=== PATIENT | female | born 1950 ===

== ENCOUNTER 2017-08-08 00:28 | Emergency (ER) | payer MEDICARE ==
[2017-08-08 00:38] VITALS: PULSE 74
[2017-08-08 00:39] VITALS: BMI 35.2
--- NOTE | 2017-08-08 01:07 | ED PDOC ---
Arrival/HPI <Terrell Syed - Last Filed: 08/08/17 01:23> - General Historian: Patient, Family - History of Present Illness Time/Duration: Prior to Arrival, 1 hour Symptom Course: Improving <Reid Baca - Last Filed: 08/08/17 02:22> - General Chief Complaint: High Blood Pressure Time Seen by Provider: 08/08/17 00:34 - History of Present Illness Narrative History of Present Illness (Text): 08/08/17 01:02 66F pmhx significant for HTN, HLD presents to [facility] [place] ED w/ concern of elevated blood pressure. Patient was at home and took her blood pressure w/ systolic in 190s. patient was concerned and subsequently came to the ED. During encounter patient admits to having coffee earlier this evening at 20:00. Denies associated chest pain, nausea, vomiting, diarrhea, numbness/tingling in extremities, vision changes Of note: patient had recent workup of echo, angiography, and nuclear stress test , all which revealed normal results per patients hx. PMH: stated above ALL: NKDA Socialhx: denies etoh, tobacco, recreational drug use. Denies additional stressors at work. Works as forensic accountant PMD: Dr. Pedersen (Reid Baca) Past Medical History - Provider Review Nursing Documentation Reviewed: Yes - Travel History Have you recently traveled outside [place] w/in the past 3 mons?: No - Cardiac Hx Cardiac Disorders: Yes Hx Hypertension: Yes - Pulmonary Hx Respiratory Disorders: No - Neurological Hx Neurological Disorder: No - HEENT Hx HEENT Disorder: No - Renal Hx Renal Disorder: No - Endocrine/Metabolic Hx Endocrine Disorders: No - Hematological/Oncological Hx Blood Disorders: No - Integumentary Hx Dermatological Disorder: No - Musculoskeletal/Rheumatological Hx Musculoskeletal Disorders: No - Gastrointestinal Hx Gastrointestinal Disorders: No - Genitourinary/Gynecological Hx Genitourinary Disorders: No - Psychiatric Hx Psychophysiologic Disorder: No Hx Substance Use: No - Anesthesia Hx Anesthesia: No <Reid Baca - Last Filed: 08/08/17 02:22> Family/Social History Family/Social History: [place] (Father and brother) Smoking Status: Never Smoked Hx Alcohol Use: No Hx Substance Use: No <Reid Baca - Last Filed: 08/08/17 02:22> Allergies/Home Meds <KunalTerrell - Last Filed: 08/08/17 01:23> <MerchantReid - Last Filed: 08/08/17 02:22> Allergies/Adverse Reactions: Allergies No Known Allergies Allergy (Verified 08/08/17 00:44) Home Medications: Home Meds Medication Instructions Recorded Confirmed Diltiazem HCl [Diltiazem 24Hr Cd] 240 mg PO DAILY 08/08/17 08/08/17 Pravastatin Sodium [Pravastatin 80 mg PO DAILY 08/08/17 08/08/17 Sodium] hydroCHLOROthiazide [Hydrodiuril] 25 mg PO DAILY 08/08/17 08/08/17 Review of Systems - Physician Review All systems were reviewed & negative as marked: Yes - Review of Systems Constitutional: Normal Eyes: absent: Vision Changes, Photophobia, Eye Pain ENT: absent: Hearing Changes, Tinnitus Respiratory: absent: SOB, Cough, Sputum, Wheezing Cardiovascular: absent: Chest Pain, Palpitations, Edema, Syncope Gastrointestinal: absent: Abdominal Pain, Stool Changes, Vomiting Musculoskeletal: absent: Arthralgias, Back Pain Skin: absent: Rash Neurological: absent: Dizziness, Focal Weakness Endocrine: absent: Polyuria <Reid Baca - Last Filed: 08/08/17 02:22> Physical Exam Vital Signs Reviewed: Yes Temperature: Afebrile Blood Pressure: Other (repeat BP in room 144/78) Pulse: Regular Respiratory Rate: Normal Appearance: Positive for: Well-Appearing, Non-Toxic, Comfortable Pain Distress: None Mental Status: Positive for: Alert and Oriented X 3 - Systems Exam Head: Present: Atraumatic, Other (mole R. forehead) Pupils: Present: PERRL, Other (fundoscopic exam performed- no papilledema or sunburst appearance) Extroacular Muscles: Present: EOMI Mouth: Present: Moist Mucous Membranes Nose (External): Present: Atraumatic. No: Abrasion Neck: Present: Normal Range of Motion Respiratory/Chest: Present: Clear to Auscultation, Good Air Exchange. No: Respiratory Distress, Accessory Muscle Use Cardiovascular: Present: Regular Rate and Rhythm, Murmurs, Normal S1, S2 Abdomen: No: Tenderness, Distention, Peritoneal Signs Upper Extremity: Present: Normal Inspection, NORMAL PULSES. No: Edema Lower Extremity: Present: Normal Inspection. No: Edema, CALF TENDERNESS Neurological: Present: GCS=15, Speech Normal Skin: Present: Dry Psychiatric: Present: Alert, Oriented x 3 <Reid Baca - Last Filed: 08/08/17 02:22> Vital Signs Temp Pulse Resp BP Pulse Ox 08/08/17 00:38 98.0 F 74 18 166/66 H 98 Medical Decision Making <Terrell Syed - Last Filed: 08/08/17 01:23> <Reid Baca - Last Filed: 08/08/17 02:22> ED Course and Treatment: 08/08/17 01:23 Carola Tolentino is a 66 year old female who presents to the emergency department complaining of elevated blood pressure. In agreement with resident note, which includes further HPI details. Patient was seen and evaluated with resident, came up with plan and treatment together. (Terrell Syed) 08/08/17 01:11 - CBC/BMP - monitor vitals 08/08/17 02:20 blood pressure trending down. most recent 138/70 Potassium 3.2 will give K-Dur 40 (Reid Baca) - Lab Interpretations Narrative Lab Interpretation (Text): 08/08/17 02:19 CBC- WNL BMP- K 3.2 (Reid Baca) Lab Results: 08/08/17 01:18 08/08/17 01:18 Lab Results 08/08/17 01:18: Sodium 143, Potassium 3.2 L, Chloride 99, Carbon Dioxide 33, Anion Gap 15, BUN 15, Creatinine 0.7, Est GFR ( Amer) > 60, Est GFR (Non- Af Amer) > 60, Random Glucose 118 H, Calcium 10.3 08/08/17 01:18: WBC 9.4, RBC 4.56, Hgb 14.0, Hct 41.8, MCV 91.7, MCH 30.7, MCHC 33.5, RDW 13.3, Plt Count 265, MPV 9.8 - Medication Orders Current Medication Orders: Discontinued Medications Potassium Chloride (K-Dur 20 Meq Er Tab) 40 meq PO STAT STA Stop: 08/08/17 01:59 - PA / PIPE ORGAN INSTALLER / Resident Statement / has reviewed & agrees with the documentation as recorded. SILVANA has examined the patient and agrees with the treatment plan. <Terrell Syed - Last Filed: 08/08/17 01:23> - PA / PIPE ORGAN INSTALLER / Resident Statement SILVANA has reviewed & agrees with the documentation as recorded. SILVANA has examined the patient and agrees with the treatment plan. <Reid Baca - Last Filed: 08/08/17 02:22> Disposition/Present on Arrival <Terrell Syed - Last Filed: 08/08/17 01:23> - Present on Arrival Any Indicators Present on Arrival: No History of DVT/PE: No History of Uncontrolled Diabetes: No Urinary Catheter: No History of Decub. Ulcer: No History Surgical Site Infection Following: None - Disposition Have Diagnosis and Disposition been Completed?: Yes Disposition Time: 02:21 Patient Plan: Discharge <Reid Baca - Last Filed: 08/08/17 02:22> - Disposition Diagnosis: High blood pressure, Hypokalemia Disposition: HOME/ ROUTINE Patient Problems: Current Active Problems Problem Status Onset High blood pressure Acute Condition: GOOD Discharge Instructions (ExitCare): High Blood Pressure (DC) Additional Instructions: Carola Lopez, thank you for letting us take care of you today. Your provider was Dr. Syed and Dr. Baca. You were treated for High blood pressure. The emergency medical care you received today was directed at your acute symptoms. If you were prescribed any medication, please fill it and take as directed. It may take several days for your symptoms to resolve. Return to the Emergency Department if your symptoms worsen, do not improve, or if you have any other problems. Recommend do not drink coffee or caffinated beverages at night prior to bed. Drink fluid and stay well hydrated throughout the day. Please contact your doctor or call one of the physicians/clinics you have been referred to that are listed on the Patient Visit Information form that is included in your discharge packet. Bring any paperwork you were given at discharge with you along with any medications you are taking to your follow up visit. Our treatment cannot replace ongoing medical care by a primary care provider (PCP) outside of the emergency department. Thank you for allowing the [facility] team to be part of your care today. Forms: [employer] (Spanish)
[2017-08-08 01:31] LABS: MEAN CELL VOLUME 91.7 fl (80.0-105.0); MEAN CORPUSCULAR HEMOGLOBIN 30.7 pg (25.0-35.0); MEAN CORPUSCULAR HGB CONC 33.5 g/dl (31.0-37.0); MEAN PLATELET VOLUME 9.8 fl (7.0-11.0); RBC 4.56 10^6/uL (3.5-6.1); RED CELL DISTRIBUTION WIDTH 13.3 % (11.5-14.5); WHITE BLOOD COUNT 9.4 10^3/ul (4.5-11.0)
[2017-08-08 01:44] LABS: BLOOD UREA NITROGEN 15 mg/dL (7-21); CALCIUM 10.3 mg/dL (8.4-10.5); GFR AFRICAN-AMERICAN > 60; GFR NON-AFRICAN AMERICAN > 60
[2017-08-08] MEDS ORDERED: Potassium Chloride 20 mEq ER Tab PO STA (01:58)
[2017-08-08 02:57] VITALS: BP 151/69; RESP 17; TEMP 98.1; O2SAT 95
== END 2017-08-08 02:57 | disposition home or self-care (01) ==
LOC: ED 00:28
DX: I10 Essential (primary) hypertension (principal); E87.6 Hypokalemia

== ENCOUNTER 2017-08-17 09:07 | Inpatient (IN) | payer MEDICARE ==
[2017-08-17 09:07] VITALS: BMI 35.2
--- NOTE | 2017-08-17 09:44 | ED PDOC ---
Arrival/HPI - General Chief Complaint: Abdominal Pain Time Seen by Provider: 08/17/17 09:13 Historian: Patient EM Caveat: Unstable Vital Signs - History of Present Illness Narrative History of Present Illness (Text): 08/17/17 09:41 Pt is a 66 year old female with a h/o HTN, presents with vomiting and diarrhea x days. 08/17/17 10:08 A 66 year old female, whose past medical history of hypertension and hypokalemia , presents to the emergency department with vomiting and diarrhea, which began this morning. The patient states that she has had multiple episodes of vomiting this morning associated with diarrhea. She notes that her vomit is yellow and she is unsure as to the amount she has vomited. The patient denies any fever, back pain, chills, GIB or any other complaints at this time. PMD: Dr. Pedersen Time/Duration: 24 hours Symptom Onset: Gradual Symptom Course: Unchanged Quality: Aching Severity Level: 3 Activities at Onset: Rest Context: Home Past Medical History - Provider Review Nursing Documentation Reviewed: Yes - Travel History Have you recently traveled outside [place] w/in the past 3 mons?: No - Reproductive Menopause: Yes - Cardiac Hx Cardiac Disorders: Yes Hx Hypertension: Yes - Pulmonary Hx Respiratory Disorders: No - Neurological Hx Neurological Disorder: No - HEENT Hx HEENT Disorder: No - Renal Hx Renal Disorder: No - Endocrine/Metabolic Hx Endocrine Disorders: No - Hematological/Oncological Hx Blood Disorders: No - Integumentary Hx Dermatological Disorder: No - Musculoskeletal/Rheumatological Hx Musculoskeletal Disorders: No - Gastrointestinal Hx Gastrointestinal Disorders: No - Genitourinary/Gynecological Hx Genitourinary Disorders: No - Psychiatric Hx Psychophysiologic Disorder: No Hx Substance Use: No - Anesthesia Hx Anesthesia: No Family/Social History - Physician Review Nursing Documentation Reviewed: Yes Family/Social History: Unknown Family HX Smoking Status: Never Smoked Hx Alcohol Use: No Hx Substance Use: No Allergies/Home Meds Allergies/Adverse Reactions: Allergies No Known Allergies Allergy (Verified 08/17/17 09:23) Home Medications: Home Meds Medication Instructions Recorded Confirmed Diltiazem HCl [Diltiazem 24Hr Cd] 240 mg PO DAILY 08/08/17 08/18/17 Pravastatin Sodium [Pravastatin 80 mg PO DAILY 08/08/17 08/18/17 Sodium] hydroCHLOROthiazide [Hydrodiuril] 25 mg PO DAILY 08/08/17 08/18/17 Review of Systems - Physician Review All systems were reviewed & negative as marked: Yes - Review of Systems Constitutional: Normal. absent: Fevers Eyes: Normal ENT: Normal Respiratory: Normal Cardiovascular: Normal Gastrointestinal: Abdominal Pain, Diarrhea, Nausea, Vomiting Genitourinary Female: Normal Musculoskeletal: Normal. absent: Back Pain Skin: Normal Neurological: Normal Endocrine: Normal Hemo/Lymphatic: Normal Psychiatric: Normal Physical Exam Vital Signs Reviewed: Yes Vital Signs Temp Pulse Resp BP Pulse Ox 08/17/17 22:00 97 H 18 136/87 98 08/17/17 20:19 98.8 F 99 H 18 138/78 98 08/17/17 17:00 100.2 F H 98 H 18 145/80 98 08/17/17 15:44 101.2 F H 08/17/17 15:00 101.2 F H 111 H 18 155/77 H 99 08/17/17 11:07 105 H 18 148/68 99 08/17/17 09:37 98.2 F 108 H 17 152/83 H 95 Temperature: Afebrile Blood Pressure: Hypertensive Pulse: Tachycardic Respiratory Rate: Normal Appearance: Positive for: Ill-Appearing, Uncomfortable Pain Distress: Mild Mental Status: Positive for: Alert and Oriented X 3 - Systems Exam Head: Present: Atraumatic, Normocephalic Pupils: Present: PERRL Extroacular Muscles: Present: EOMI Conjunctiva: Present: Normal Mouth: Present: Dry Neck: Present: Normal Range of Motion Respiratory/Chest: Present: Clear to Auscultation, Good Air Exchange. No: Respiratory Distress, Accessory Muscle Use Cardiovascular: Present: Regular Rate and Rhythm, Normal S1, S2, Tachycardic. No: Murmurs Abdomen: Present: Tenderness, Normal Bowel Sounds. No: Distention, Peritoneal Signs Back: Present: Normal Inspection Upper Extremity: Present: Normal Inspection. No: Cyanosis, Edema Lower Extremity: Present: Normal Inspection. No: Edema Neurological: Present: GCS=15, CN II-XII Intact, Speech Normal Skin: Present: Dry Psychiatric: Present: Alert, Oriented x 3, Normal Insight, Normal Concentration Medical Decision Making ED Course and Treatment: 08/17/17 10:13 Impression: A 66 year old female with vomiting and diarrhea. Differential Diagnosis included but are not limited to: Acute abdomen Mesenteric ischemia Gastroenteritis Plan: -- EKG -- LR, Zofran -- Urinalysis and labs -- Reassess and disposition Progress Notes: Vomiting and diarrhea ceased after zofran admin labs indicate elevated wbc with mild bandemia along with K at 3.2 continued to see pt lethargic although vomiting and diarrhea ceased Acetaminophen 650mg for fever Will contact hospitalist once CT done to have pt admitted for possible sepsis Continued to give fluids x2L, NPO CT scan unremarkable Pt resting comfortably in bed. Oral challenge to assess tolerance Spoke with Dr. Woo to admit pt to observation for leukocytosis, dehydration, and sepsis Discussed with pt and spouse at bedside; 08/17/17 12:00 - Lab Interpretations Lab Results: 08/17/17 09:45 08/17/17 09:45 Lab Results 08/17/17 12:00: Lactic Acid 2.0 08/17/17 12:00: pO2 51, VBG pH 7.41, VBG pCO2 46.0, VBG HCO3 29.2 H, VBG Total CO2 30.6 H, VBG O2 Sat (Calc) 91.8 H, VBG Base Excess 3.8 H, VBG Potassium 3.6, Glucose 127 H, Lactate 2.3 H, FiO2 21.0, Sodium 141.0, Chloride 104.0, Venous Blood Potassium 3.6 08/17/17 11:30: Urine Color Yellow, Urine Appearance Clear, Urine pH 7.5, Ur Specific [place] 1.020, Urine Protein Trace H, Urine Glucose (UA) Negative, Urine Ketones Negative, Urine Blood Trace-intact H, Urine Nitrate Negative, Urine Bilirubin Negative, Urine Urobilinogen 0.2, Ur Leukocyte Esterase Trace H , Urine RBC 0 - 2, Urine WBC 0 - 2, Ur Epithelial Cells 0 - 2, Urine Bacteria Few 08/17/17 09:45: Sodium 145, Potassium 3.4 L, Chloride 103, Carbon Dioxide 28, Anion Gap 17, BUN 18, Creatinine 0.7, Est GFR ( Amer) > 60, Est GFR (Non- Af Amer) > 60, Random Glucose 152 H, Calcium 9.8, Total Bilirubin 1.1, AST 35, ALT 30, Alkaline Phosphatase 105, Total Protein 8.3, Albumin 4.5, Globulin 3.7, Albumin/Globulin Ratio 1.2 08/17/17 09:45: WBC 25.0 H D, RBC 4.69, Hgb 14.3, Hct 42.7, MCV 91.0, MCH 30.5, MCHC 33.5, RDW 13.3, Plt Count 265, MPV 9.9, Gran % 92.0 H, Lymph % (Auto) 3.2 L , Gray % (Auto) 3.0, Eos % (Auto) 1.7, Baso % (Auto) 0.1, Gran # 23.01 H, Lymph # (Auto) 0.8 L, Gray # (Auto) 0.7 H, Eos # (Auto) 0.4, Baso # (Auto) 0.02, Neutrophils % (Manual) 91 H, Band Neutrophils % 4 H, Lymphocytes % (Manual) 2 L , Monocytes % (Manual) 3, Platelet Evaluation Normal I have reviewed the lab results: Yes (Lactate 2.3, WBC 25.0) - RAD Interpretation Narrative RAD Interpretations (Text): 08/17/17 17:36 PROCEDURE: CT Abdomen and Pelvis with Oral contrast. HISTORY: acute abdomen COMPARISON: None. TECHNIQUE: Contiguous axial images of the abdomen and pelvis. Oral contrast was administered. No IV contrast given. Coronal and Sagittal reformats generated. Radiation dose: Total exam DLP = This CT exam was performed using one or more of the following dose reduction techniques: Automated exposure control, adjustment of the mA and/or kV according to patient size, and/or use of iterative reconstruction technique. FINDINGS: LOWER THORAX: Unremarkable. LIVER: Mildly enlarged liver. No evidence of mass lesion or intrahepatic biliary ductal dilatation. GALLBLADDER AND BILE DUCTS: Unremarkable. PANCREAS: Unremarkable. No mass. No ductal dilatation. SPLEEN: Unremarkable. No splenomegaly. ADRENALS: Mild nodular enlargement of the both adrenal glands noted. KIDNEYS AND URETERS: There is low-attenuation 3 centimeter cyst exophytic from the midpole of the right kidney. . No stone or hydronephrosis. The ureters are not dilated. BLADDER: Grossly unremarkable. REPRODUCTIVE: Unremarkable. APPENDIX: No evidence of appendicitis. BOWEL: Unremarkable. No obstruction. No gross mural thickening. PERITONEUM: Unremarkable. No fluid collection. No free air. LYMPH NODES: Unremarkable. No enlarged lymph nodes. VASCULATURE: Unremarkable. No aortic aneurysm. BONES: Age indeterminate mild compression deformity of T12 vertebral body. Mild anterior spondylolisthesis of L4 relative to L5 noted. OTHER FINDINGS: None. IMPRESSION: Suboptimal evaluation without IV contrast administration. No evidence of acute pathology in the abdomen and pelvis. Age indeterminate mild compression deformity at the superior endplate of T12 vertebral body. 08/18/17 10:05 Chest XR reveals NO ACTIVE DISEASE Radiology Orders: 08/17/17 12:46 ABD & PELVIS PO CONTRAST ONLY [CT] Stat 08/17/17 18:38 CHEST ONE VIEW [RAD] Stat - Medication Orders Current Medication Orders: Acetaminophen (Tylenol 325mg Tab) 650 mg PO Q6H PRN PRN Reason: Fever >100.4 F Diltiazem HCl (Cardizem Cd) 240 mg PO DAILY [facility] Last Admin: 08/18/17 09:35 Dose: 240 mg MAR Pulse and Blood Pressure Document 08/18/17 09:35 BIR (Rec: 08/18/17 09:35 BIR [id number]) Pulse Pulse Rate (60-90) 80 Blood Pressure Blood Pressure (100/60-150/90) 153/73 Famotidine (Pepcid) 40 mg PO HS [facility] Last Admin: 08/17/17 23:02 Dose: 40 mg Ceftriaxone Sodium (Rocephin 1 Gram Ivpb) 1 gm in 100 mls @ 100 mls/hr IVPB DAILY NAEL PRN Reason: Protocol Last Admin: 08/18/17 09:36 Dose: 100 mls/hr eMAR Start Stop Document 08/18/17 09:36 BIR (Rec: 08/18/17 09:36 BIR [id number]) Intravenous Solution Start Date 08/18/17 Start Time 09:36 End Date 08/18/17 End time 10:45 Total Infusion Time 69 Metronidazole (Flagyl) 500 mg in 100 mls @ 100 mls/hr IVPB Q8 NAEL PRN Reason: Protocol Last Admin: 08/18/17 05:52 Dose: 100 mls/hr eMAR Start Stop Document 08/18/17 05:52 KTB (Rec: 08/18/17 05:53 KTB [id number]) Intravenous Solution Start Date 08/18/17 Start Time 05:52 End Date 08/18/17 End time 06:52 Total Infusion Time 60 Potassium Chloride 40 meq/ (Dextrose/Sodium Chloride) 1,020 mls @ 100 mls/hr IV [id number] NAEL Last Admin: 08/18/17 09:35 Dose: 100 mls/hr eMAR Start Stop Document 08/18/17 09:35 BIR (Rec: 08/18/17 09:36 BIR [id number]) Intravenous Solution Start Date 08/18/17 Start Time 09:35 Insulin Human Regular (Humulin R Low) 0 units SC ACHS NAEL PRN Reason: Protocol Last Admin: 08/18/17 09:33 Dose: Nitroglycerin (Nitro-Bid 2% Oint) 1 ea TOP Q4H PRN PRN Reason: accelerated hypertension Ondansetron HCl (Zofran Inj) 4 mg IVP Q6H PRN PRN Reason: Nausea/Vomiting Potassium Chloride (K-Dur 20 Meq Er Tab) 40 meq PO ONCE ONE Stop: 08/18/17 10:13 Discontinued Medications Acetaminophen (Tylenol 325mg Tab) 650 mg PO STAT STA Stop: 08/17/17 15:39 Last Admin: 08/17/17 15:44 Dose: 650 mg MAR Pain/Vitals Document 08/17/17 15:44 EWO (Rec: 08/17/17 15:44 ANKURO [id number]) Pain Reassessment Is This A Pain ReAssessment? No Sleep Is patient sleeping during reassessment? No Presence of Pain Presence of Pain No Vitals Temperature (97.6 F-99.6 F) 101.2 F Temperature Source Oral Lactated Ringer's (Lactated Ringer's) 1,000 mls @ 500 mls/hr IV .Q2H NAEL Last Admin: 08/17/17 10:27 Dose: 500 mls/hr eMAR Start Stop Document 08/17/17 10:27 EWO (Rec: 08/17/17 10:27 EWO [id number]) Intravenous Solution Start Date 08/17/17 Start Time 10:27 Sodium Chloride (Sodium Chloride 0.9%) 1,000 mls @ 999 mls/hr IV .Q1H1M STA Stop: 08/17/17 15:42 Last Admin: 08/17/17 15:43 Dose: 999 mls/hr eMAR Start Stop Document 08/17/17 15:43 EWO (Rec: 08/17/17 15:44 EWO [id number]) Intravenous Solution Start Date 08/17/17 Start Time 15:44 Metronidazole (Flagyl) 500 mg in 100 mls @ 100 mls/hr IVPB Q8 NAEL PRN Reason: Protocol Dextrose/Sodium Chloride (Dextrose 5%/0.45% Ns 1000 Ml) 1,000 mls @ 100 mls/hr IV .Q10H NAEL Last Admin: 08/17/17 18:59 Dose: 100 mls/hr eMAR Start Stop Document 08/17/17 18:59 EWO (Rec: 08/17/17 19:00 [facility] [id number]) Intravenous Solution Start Date 08/17/17 Start Time 19:00 Ondansetron HCl (Zofran Inj) 4 mg IVP STAT STA Stop: 08/17/17 09:40 Last Admin: 08/17/17 10:26 Dose: 4 mg IVP Administration Document 08/17/17 10:26 EWO (Rec: 08/17/17 10:27 EWO [id number]) Charges for Administration # of IVP Administrations 1 Pneumococcal Polyvalent Vaccine (Pneumovax 23 Vaccine) 0.5 ml IM .ONCE ONE Stop: 08/18/17 01:12 Last Admin: 08/18/17 01:24 Dose: Comments: patient is not a candidate Immunization Registry Document 08/18/17 01:24 KTB (Rec: 08/18/17 01:24 KTB [id number]) Immunization Registry Consent Date 07/28/17 - Scribe Statement The provider has reviewed the documentation as recorded by the Salomon Pelletier Provider Scribe Attestation: All medical record entries made by the Leisaibchristos were at my direction and personally dictated by me. I have reviewed the chart and agree that the record accurately reflects my personal performance of the history, physical exam, medical decision making, and the department course for this patient. I have also personally directed, reviewed, and agree with the discharge instructions and disposition. Disposition/Present on Arrival - Present on Arrival Any Indicators Present on Arrival: Yes History of DVT/PE: No History of Uncontrolled Diabetes: No Urinary Catheter: No History of Decub. Ulcer: No History Surgical Site Infection Following: None - Disposition Have Diagnosis and Disposition been Completed?: Yes Diagnosis: Gastroenteritis, Leukocytosis, unspecified, Dehydration Disposition: HOSPITALIZED Disposition Time: 18:23 Patient Plan: Admission Patient Problems: Current Active Problems Problem Status Onset Gastroenteritis Acute Leukocytosis, unspecified Acute Dehydration Acute Condition: STABLE
[2017-08-17] MEDS ORDERED: Lactated Ringer's 1,000 ML IV SCH (09:45)
[2017-08-17 09:54] LABS: BASO # 0.02 K/mm3 (0.0-2.0); BASO % 0.1 % (0.0-3.0); EOS # 0.4 (0.0-0.7); EOS % 1.7 % (1.5-5.0); GRAN # 23.01 (1.4-6.5); HEMOGLOBIN 14.3 g/dL (12.0-16.0); LYMPH # 0.8 (1.2-3.4); LYMPH % 3.2 % (22.0-35.0); MEAN CORPUSCULAR HEMOGLOBIN 30.5 pg (25.0-35.0); MEAN CORPUSCULAR HGB CONC 33.5 g/dl (31.0-37.0); MEAN PLATELET VOLUME 9.9 fl (7.0-11.0); MONO # 0.7 (0.1-0.6); PLATELET COUNT 265 10^3/uL (120.0-450.0); RBC 4.69 10^6/uL (3.5-6.1); RED CELL DISTRIBUTION WIDTH 13.3 % (11.5-14.5)
[2017-08-17 10:04] LABS: ALB/GLOB RATIO 1.2 (1.1-1.8); ALBUMIN 4.5 g/dL (3.0-4.8); ALT/SGPT 30 U/L (7-56); AST/SGOT 35 U/L (14-36); BLOOD UREA NITROGEN 18 mg/dL (7-21); CALCIUM 9.8 mg/dL (8.4-10.5); GFR AFRICAN-AMERICAN > 60; GFR NON-AFRICAN AMERICAN > 60
[2017-08-17 10:12] LABS: BAND 4 % (0-2); LYMPHOCYTE 2 % (22.0-35.0); MONOCYTE 3 % (1.0-6.0); NEUTROPHIL 91 % (50.0-70.0)
[2017-08-17 10:13] LABS: PLATELET ESTIMATE NORMAL (NORMAL)
[2017-08-17 11:50] LABS: PH,URINE 7.5 (4.7-8.0); URINE APPEARANCE CLEAR (CLEAR); URINE BILIRUBIN NEGATIVE (NEGATIVE); URINE BLOOD TRACE-INTACT (NEGATIVE); URINE COLOR YELLOW (YELLOW); URINE GLUCOSE (UA) NEGATIVE (NEGATIVE); URINE LEUKOCYTE ESTERASE TRACE Leu/uL (NEGATIVE); URINE PROTEIN TRACE mg/dL (<30 mg/dL); URINE UROBILINOGEN 0.2 E.U./dL (<1 E.U./dL)
[2017-08-17 12:04] LABS: URINE EPITHELIAL CELLS 0 - 2 /hpf (0-5); URINE RBC 0 - 2 /hpf (0-2); URINE WBC 0 - 2 /hpf (0-6)
[2017-08-17 12:05] LABS: URINE BACTERIA FEW (NEG)
[2017-08-17] MEDS ORDERED: Iohexol 240 (50 ml) ONE (13:04)
[2017-08-17 13:06] LABS: VENOUS BLOOD GAS BASE EXCESS 3.8 mmol/L (0.0-2.0); VENOUS BLOOD GAS PO2 51 mm/Hg (30-55); VENOUS BLOOD PH 7.41 (7.32-7.43)
[2017-08-17] MEDS ORDERED: Sodium Chloride 0.9% 1,000 ML IV STA (14:42)
--- NOTE | 2017-08-17 17:29 | CT ---
PROCEDURE: CT Abdomen and Pelvis with Oral contrast. HISTORY: acute abdomen COMPARISON: None. TECHNIQUE: Contiguous axial images of the abdomen and pelvis. Oral contrast was administered. No IV contrast given. Coronal and Sagittal reformats generated. Radiation dose: Total exam DLP = This CT exam was performed using one or more of the following dose reduction techniques: Automated exposure control, adjustment of the mA and/or kV according to patient size, and/or use of iterative reconstruction technique. FINDINGS: LOWER THORAX: Unremarkable. LIVER: Mildly enlarged liver. No evidence of mass lesion or intrahepatic biliary ductal dilatation. GALLBLADDER AND BILE DUCTS: Unremarkable. PANCREAS: Unremarkable. No mass. No ductal dilatation. SPLEEN: Unremarkable. No splenomegaly. ADRENALS: Mild nodular enlargement of the both adrenal glands noted. KIDNEYS AND URETERS: There is low-attenuation 3 centimeter cyst exophytic from the midpole of the right kidney. . No stone or hydronephrosis. The ureters are not dilated. BLADDER: Grossly unremarkable. REPRODUCTIVE: Unremarkable. APPENDIX: No evidence of appendicitis. BOWEL: Unremarkable. No obstruction. No gross mural thickening. PERITONEUM: Unremarkable. No fluid collection. No free air. LYMPH NODES: Unremarkable. No enlarged lymph nodes. VASCULATURE: Unremarkable. No aortic aneurysm. BONES: Age indeterminate mild compression deformity of T12 vertebral body. Mild anterior spondylolisthesis of L4 relative to L5 noted. OTHER FINDINGS: None. IMPRESSION: Suboptimal evaluation without IV contrast administration. No evidence of acute pathology in the abdomen and pelvis. Age indeterminate mild compression deformity at the superior endplate of T12 vertebral body.
[2017-08-17] MEDS ORDERED: Nitroglycerin 2% Ointment Foilpak UD TOP PRN (18:40)
[2017-08-17] MEDS ORDERED: Dextrose 5%/0.45% NS 1,000 ML IV SCH (18:45)
[2017-08-17] MEDS: metroNIDAZOLE IV 500 mg/100 ml 500 MG/100 ML BAG IVPB SCH (19:23)
[2017-08-17] MEDS: Potassium Chloride 40 MEQ in Dextrose 5%/0.45% NS 1,000 ML IV SCH (19:42)
[2017-08-17 20:24] LABS: VENOUS BLOOD GAS BASE EXCESS 5.5 mmol/L (0.0-2.0); VENOUS BLOOD GAS PO2 40 mm/Hg (30-55); VENOUS BLOOD PH 7.37 (7.32-7.43)
--- NOTE | 2017-08-17 21:42 | RAD ---
PROCEDURE: CHEST RADIOGRAPH, 1 VIEW HISTORY: abdominal pain COMPARISON: None available. FINDINGS: LUNGS: Prominent lung markings. No evidence of focal infiltrate or consolidation in the lungs PLEURA: No pneumothorax or pleural fluid seen. CARDIOVASCULAR: Normal. OSSEOUS STRUCTURES: No significant abnormalities. VISUALIZED UPPER ABDOMEN: Normal. OTHER FINDINGS: No evidence of subdiaphragmatic free air in this study. IMPRESSION: No active disease.
[2017-08-17] MEDS ORDERED: metroNIDAZOLE IV 500 mg/100 ml 500 MG/100 ML BAG IVPB SCH (22:00)
[2017-08-17] MEDS: Insulin Reg-LOW-Coverage SC SCH (22:53)
[2017-08-18] MEDS: metroNIDAZOLE IV 500 mg/100 ml 500 MG/100 ML BAG IVPB SCH ×4 (00:40→21:11)
[2017-08-18] MEDS ORDERED: Pneumococcal 23-Valent Vaccine IM ONE (01:11)
[2017-08-18] MEDS ORDERED: Influenza Vaccine 60 mcg/0.5 mL SYR (4YR UP) IM ONE (01:11)
[2017-08-18 06:26] LABS: BASO # 0.01 K/mm3 (0.0-2.0); BASO % 0.1 % (0.0-3.0); EOS # 0.3 (0.0-0.7); EOS % 2.8 % (1.5-5.0); GRAN # 8.2 (1.4-6.5); GRAN % 75.5 % (50.0-68.0); LYMPH # 1.8 (1.2-3.4); LYMPH % 16.6 % (22.0-35.0); MEAN CELL VOLUME 91.5 fl (80.0-105.0); MEAN CORPUSCULAR HEMOGLOBIN 30.4 pg (25.0-35.0); MEAN CORPUSCULAR HGB CONC 33.2 g/dl (31.0-37.0); MEAN PLATELET VOLUME 9.8 fl (7.0-11.0); MONO # 0.5 (0.1-0.6); RBC 4.01 10^6/uL (3.5-6.1); RED CELL DISTRIBUTION WIDTH 13.6 % (11.5-14.5); WHITE BLOOD COUNT 10.9 10^3/ul (4.5-11.0)
[2017-08-18 06:34] LABS: HEMOGLOBIN 12.2 g/dL (12.0-16.0)
[2017-08-18 06:54] LABS: BLOOD UREA NITROGEN 11 mg/dL (7-21); CALCIUM 9.2 mg/dL (8.4-10.5); GFR AFRICAN-AMERICAN > 60; GFR NON-AFRICAN AMERICAN > 60
[2017-08-18] MEDS: Insulin Reg-LOW-Coverage SC SCH ×4 (09:33→21:15)
[2017-08-18] MEDS: Potassium Chloride 40 MEQ in Dextrose 5%/0.45% NS 1,000 ML IV SCH ×2 (09:35→21:11)
[2017-08-18] MEDS: diltiaZEM 240 mg/24 Hours CD Cap PO SCH (09:35)
[2017-08-18] MEDS: cefTRIAXone 1 gm 1 GM/100 ML BAG IVPB SCH (09:36)
[2017-08-18] MEDS ORDERED: Potassium Chloride 20 mEq ER Tab PO ONE (10:12)
--- NOTE | 2017-08-18 10:44 | CARD ---
APPROVED REPORT EKG Measurement Heart [id number] ID [id number] <Conclusion> Sinus tachycardia Right bundle branch block STTW changes
--- NOTE | 2017-08-18 19:18 | CP.PCM.CON ---
History of Present Illness - History of Present Illness History of Present Illness: Infectious Disease Consultation: August 18, 2017 66 yo female with presentation of nausea and vomiting for 1 day prior to hospitalization. The patient gives a history of hypertension and was found to be hypokalemic. Leukocytosis of 25 on admission. The patient denies any other symptoms at this time. She states that she feels better since admission. PMHx: Hypertension PSHx: none given Allergies: NKDA Social Hx: No tobacco, EtOH, or illicit drug use Active Medications Acetaminophen (Tylenol 325mg Tab) 650 mg PO Q6H PRN PRN Reason: Fever >100.4 F Diltiazem HCl (Cardizem Cd) 240 mg PO DAILY NAEL Last Admin: 08/18/17 09:35 Dose: 240 mg Famotidine (Pepcid) 40 mg PO HS [facility] Last Admin: 08/17/17 23:02 Dose: 40 mg Ceftriaxone Sodium (Rocephin 1 Gram Ivpb) 1 gm in 100 mls @ 100 mls/hr IVPB DAILY NAEL PRN Reason: Protocol Last Admin: 08/18/17 09:36 Dose: 100 mls/hr Metronidazole (Flagyl) 500 mg in 100 mls @ 100 mls/hr IVPB Q8 NAEL PRN Reason: Protocol Last Admin: 08/18/17 14:03 Dose: 100 mls/hr Potassium Chloride 40 meq/ (Dextrose/Sodium Chloride) 1,020 mls @ 100 mls/hr IV .[id number] NAEL Last Admin: 08/18/17 09:35 Dose: 100 mls/hr Insulin Human Regular (Humulin R Low) 0 units SC ACHS NAEL PRN Reason: Protocol Last Admin: 08/18/17 17:18 Dose: Not Given Nitroglycerin (Nitro-Bid 2% Oint) 1 ea TOP Q4H PRN PRN Reason: accelerated hypertension Ondansetron HCl (Zofran Inj) 4 mg IVP Q6H PRN PRN Reason: Nausea/Vomiting Family Hx: none given ROS: Nausea and Vomiting and Diarrhea No chest pain, abdominal pain, melena, hematuria, hematemesis, hematochezia, depression, anxiety, vision loss, hearing loss, loss of consciousness, SOB, cough, headaches, or dizziness. Past Patient History - Past Social History Smoking Status: Never Smoked - CARDIAC Hx Cardiac Disorders: Yes Hx Hypertension: Yes - PULMONARY Hx Respiratory Disorders: No - NEUROLOGICAL Hx Neurological Disorder: No - HEENT Hx HEENT Problems: No - RENAL Hx Chronic Kidney Disease: No - ENDOCRINE/METABOLIC Hx Endocrine Disorders: No - HEMATOLOGICAL/ONCOLOGICAL Hx Blood Disorders: No - INTEGUMENTARY Hx Dermatological Problems: No - MUSCULOSKELETAL/RHEUMATOLOGICAL Hx Musculoskeletal Disorders: No - GASTROINTESTINAL Hx Gastrointestinal Disorders: No - GENITOURINARY/GYNECOLOGICAL Hx Genitourinary Disorders: No - PSYCHIATRIC Hx Psychophysiologic Disorder: No Hx Substance Use: No - SURGICAL HISTORY Hx Surgeries: Yes Hx Appendectomy: Yes Other/Comment: Arthroscopy L knee, c section x 1, cataract sx ou - ANESTHESIA Hx Anesthesia: No Meds Allergies/Adverse Reactions: Allergies Allergy/AdvReac Type Severity Reaction Status Date / Time No Known Allergies Allergy Verified 08/17/17 09:23 - Medications Medications: Current Medications Acetaminophen (Tylenol 325mg Tab) 650 mg PO Q6H PRN PRN Reason: Fever >100.4 F Diltiazem HCl (Cardizem Cd) 240 mg PO DAILY [facility] Last Admin: 08/18/17 09:35 Dose: 240 mg Famotidine (Pepcid) 40 mg PO HS [facility] Last Admin: 08/17/17 23:02 Dose: 40 mg Ceftriaxone Sodium (Rocephin 1 Gram Ivpb) 1 gm in 100 mls @ 100 mls/hr IVPB DAILY NAEL PRN Reason: Protocol Last Admin: 08/18/17 09:36 Dose: 100 mls/hr Metronidazole (Flagyl) 500 mg in 100 mls @ 100 mls/hr IVPB Q8 NAEL PRN Reason: Protocol Last Admin: 08/18/17 14:03 Dose: 100 mls/hr Potassium Chloride 40 meq/ (Dextrose/Sodium Chloride) 1,020 mls @ 100 mls/hr IV .[id number] [facility] Last Admin: 08/18/17 09:35 Dose: 100 mls/hr Insulin Human Regular (Humulin R Low) 0 units SC ACHS NAEL PRN Reason: Protocol Last Admin: 08/18/17 17:18 Dose: Not Given Nitroglycerin (Nitro-Bid 2% Oint) 1 ea TOP Q4H PRN PRN Reason: accelerated hypertension Ondansetron HCl (Zofran Inj) 4 mg IVP Q6H PRN PRN Reason: Nausea/Vomiting Physical Exam - Constitutional Appears: Non-toxic, No Acute Distress, Chronically Ill - Head Exam Head Exam: ATRAUMATIC, NORMOCEPHALIC - Eye Exam Eye Exam: EOMI, PERRL Pupil Exam: NORMAL ACCOMODATION, PERRL - ENT Exam ENT Exam: Mucous Membranes Moist, Normal External Ear Exam, TM's Normal Bilaterally - Neck Exam Neck exam: Positive for: Full Rom, Normal Inspection - Respiratory Exam Respiratory Exam: Clear to Auscultation Bilateral, NORMAL BREATHING PATTERN. absent: Rales, Rhonchi, Wheezes - Cardiovascular Exam Cardiovascular Exam: REGULAR RHYTHM, RRR, +S1, +S2 - GI/Abdominal Exam GI & Abdominal Exam: Normal Bowel Sounds, Soft. absent: Distended, Tenderness - Extremities Exam Extremities exam: Positive for: full ROM, normal inspection - Neurological Exam Neurological exam: Alert, CN II-XII Intact, Oriented x3 - Psychiatric Exam Psychiatric exam: Normal Affect, Normal Mood - Skin Skin Exam: Intact, Normal Color Results - Vital Signs Recent Vital Signs: Last Vital Signs Temp 98.2 F 08/18/17 08:27 Pulse 80 08/18/17 09:35 Resp 20 08/18/17 08:27 BP 153/73 H 08/18/17 09:35 Pulse Ox 94 L 08/18/17 08:27 - Labs Result Diagrams: 08/18/17 05:20 08/18/17 05:20 Labs: Laboratory Results - last 24 hr 08/17/17 08/17/17 08/18/17 20:00 22:44 05:20 WBC 10.9 D RBC 4.01 Hgb 12.2 D Hct 36.7 MCV 91.5 MCH 30.4 MCHC 33.2 RDW 13.6 Plt Count 232 MPV 9.8 Gran % 75.5 H Lymph % (Auto) 16.6 L [place] % (Auto) 5.0 Eos % (Auto) 2.8 Baso % (Auto) 0.1 Gran # 8.20 H Lymph # (Auto) 1.8 [place] # (Auto) 0.5 Eos # (Auto) 0.3 Baso # (Auto) 0.01 pO2 40 VBG pH 7.37 VBG pCO2 56.0 VBG HCO3 32.4 H VBG Total CO2 34.1 H VBG O2 Sat (Calc) 76.7 H VBG Base Excess 5.5 H VBG Potassium 3.3 L Sodium 141.0 Chloride 105.0 Glucose 115 H Lactate 1.9 FiO2 21.0 Potassium Carbon Dioxide Anion Gap BUN Creatinine Est GFR ( Amer) Est GFR (Non-Af Amer) POC Glucose (mg/dL) 131 H Random Glucose Calcium Venous Blood Potassium 3.3 L 08/18/17 08/18/17 08/18/17 05:20 11:44 16:32 WBC RBC Hgb Hct MCV MCH MCHC RDW Plt Count MPV Gran % Lymph % (Auto) [place] % (Auto) Eos % (Auto) Baso % (Auto) Gran # Lymph # (Auto) [place] # (Auto) Eos # (Auto) Baso # (Auto) pO2 VBG pH VBG pCO2 VBG HCO3 VBG Total CO2 VBG O2 Sat (Calc) VBG Base Excess VBG Potassium Sodium 140 Chloride 103 Glucose Lactate FiO2 Potassium 3.4 L Carbon Dioxide 29 Anion Gap 12 BUN 11 Creatinine 0.7 Est GFR ( Amer) > 60 Est GFR (Non-Af Amer) > 60 POC Glucose (mg/dL) 99 101 Random Glucose 136 H Calcium 9.2 Venous Blood Potassium Assessment & Plan - Assessment and Plan (Free Text) Assessment: 66 yo female with nausea, vomiting, and diarrhea. Imaging studies did not show significant disease at this time. Initial leukocytosis of 25 that improved to normal over 24 hours. Clinically the patient is feeling better. Mcneil cultures pending. Supportive care. Monitor electrolytes and leukocytosis. Still with hypokalemia. Thank you for allowing me to participate in the care of the patient, we will follow with you.
[2017-08-18 21:31] VITALS: O2SAT 95
--- NOTE | 2017-08-19 00:51 | HP ---
DATE OF EXAM: 08/18/2017 HISTORY OF PRESENT ILLNESS: This 66-year-old female was examined on the cardiac perez and this case was reviewed in detail with herself and nurse, Bibiana Alegria, registered nurse. She is 66 years old. She presented to the [facility] ER with nausea and vomiting for 3 days. PAST MEDICAL HISTORY: She has a past medical history of hypertension and in the emergency room, was noted to have hypokalemia and an elevated white count of 25,000. The patient also had told the emergency room physician that she was vomiting a yellow vomitus and was admitted for further evaluation of the above. MEDICATIONS: On further questioning of the patient, she stated outpatient medications had included HydroDIURIL, Pravachol and Cardizem CD. In the emergency room, she was treated with Zofran, IV fluids and was admitted for further evaluation of the above. SOCIAL HISTORY: The patient is a nondrinker, nonsmoker, non IV drug misuser, retired homemaker. ALLERGIES: NO KNOWN ALLERGIES TO MEDICATION. FAMILY HISTORY: Noncontributory. REVIEW OF SYSTEMS: HEENT: On head review, there were no headache or seizures. Eye review, no change in visual acuity. Ear review, no hearing loss. Throat review, no swallowing difficulty. NECK REVIEW: No stiffness. CARDIAC REVIEW: She denied chest pain or palpitation. There was no knowledge of previous myocardial infarction. PULMONARY: No cough. No hemoptysis. GASTROINTESTINAL: No hematemesis, melena. GENITOURINARY: No hematuria. SKIN: Without rash. NEUROLOGICAL: No seizures. VASCULAR: No claudication. PSYCHOLOGICAL: Positive anxiety. NEUROLOGICAL: No stroke. ENDOCRINOLOGICAL: No knowledge of insulin-dependent diabetes mellitus. CONSTITUTIONAL: Denies fever or chills. CT from the emergency room was reviewed. There was no evidence of appendicitis and there were no obstructions noted on her bowel exam. Her peritoneum was unremarkable and there was no fluid collection, no free air noted. No enlarged lymph nodes were noted as well. PHYSICAL EXAMINATION: GENERAL: At present, her president and cmo showed a normal sinus rhythm. VITAL SIGNS: Her temperature was 98.2, respirations 20, pulse 80, blood pressure 153/73 and pulse ox 94% room air. HEENT: Head normocephalic, atraumatic. Eyes: No icterus. Ears: Clear. Throat: Noninjected. NECK: Supple. HEART: Regular S1, S2. No pathological rubs, murmurs or gallops. LUNGS: Clear. ABDOMEN: Obese. EXTREMITIES: No edema. SKIN: Without rash. NEUROLOGICAL: Grossly intact. PSYCHOLOGICAL: Alert and anxious. VASCULAR: Legs warm to touch. LABORATORY DATA: White count 25,000, hemoglobin 14.3, hematocrit 42.7, platelets 265,000. Chemistry, sodium 140, K 3.4, chloride 103, bicarb 29, BUN 11, creatinine 0.7, random blood sugar 136. Lactic acid 2.0. Bilirubin 1.1, AST 35, ALT 30 and alk phos 105. Urinalysis showed few bacteria and 0 to 2 rbc's and 0 to 2 white blood cells. Chest x-ray was reviewed. It showed prominent lung markings, but no evidence of any focal infiltrate or consolidation in either lung. There was no pneumothorax and no effusion. EKG was reviewed. It showed sinus tachycardia with nonspecific ST-T wave changes and a right bundle branch block. IMPRESSION: This is a 66-year-old female admitted with nausea, vomiting, hypokalemia, leukocytosis, rule out sepsis and history of chronic hypertension and anxiety. PLAN: As discussed with the patient and nursing will be to consult Dr. Brad Silvestre from Infectious Disease given her markedly elevated white blood cell count. She is ordered to have a blood and urine culture. She will have a repeat basic metabolic panel and CBC in the a.m. She has been medicated with oral potassium and will be given Cardizem CD 240 mg p.o. daily, Flagyl 500 mg IV q. 8, regular low-dose insulin protocol a.c. meals and at bedtime, nitroglycerin 1 inch to chest wall q. 4 hours p.r.n. accelerated hypertension if systolic blood pressure is greater than 160 or diastolic blood pressure is greater than 100. She is ordered to have Pepcid 40 mg p.o. at bedtime, D5 0.45 saline with 40 mEq of potassium per liter at 100 mL/hour. She will have Rocephin 1 g IV q. 24, Tylenol 650 p.o. q. 6 hours p.r.n. pain or temperature greater than 101 and Zofran 4 mg IV q. 6 hours p.r.n. nausea and vomiting. She is ordered to have heart-healthy soft bland diet as tolerated and based on her clinical progress, additional testing and workup will be entertained. Greater than 75 minutes was spent in the care management, review of labs, x-rays, orders and discussion of this patient's case with herself, nursing and Dr. Brad Silvestre from Infectious Disease. All questions were answered. Amelie Woo MD MTDD
[2017-08-19] MEDS: metroNIDAZOLE IV 500 mg/100 ml 500 MG/100 ML BAG IVPB SCH (05:50)
[2017-08-19 06:56] LABS: LDL CHOLESTEROL 65 mg/dL (0-129)
[2017-08-19 07:12] LABS: BLOOD UREA NITROGEN 7 mg/dL (7-21); CALCIUM 9.3 mg/dL (8.4-10.5); GFR AFRICAN-AMERICAN > 60; GFR NON-AFRICAN AMERICAN > 60; HDL CHOLESTEROL 44 mg/dL (29-60)
[2017-08-19 07:39] LABS: HEMOGLOBIN 11.9 g/dL (12.0-16.0); MEAN CELL VOLUME 91.8 fl (80.0-105.0); MEAN CORPUSCULAR HEMOGLOBIN 29.5 pg (25.0-35.0); MEAN CORPUSCULAR HGB CONC 32.2 g/dl (31.0-37.0); MEAN PLATELET VOLUME 9.8 fl (7.0-11.0); RBC 4.03 10^6/uL (3.5-6.1); RED CELL DISTRIBUTION WIDTH 13.7 % (11.5-14.5); WHITE BLOOD COUNT 8.3 10^3/ul (4.5-11.0)
[2017-08-19 08:37] VITALS: BP 167/86; PULSE 80; RESP 20; TEMP 98.4
[2017-08-19] MEDS: cefTRIAXone 1 gm 1 GM/100 ML BAG IVPB SCH (09:32)
[2017-08-19] MEDS: diltiaZEM 240 mg/24 Hours CD Cap PO SCH (09:32)
--- NOTE | 2017-08-19 18:02 | CP.PCM.PN ---
Subjective - Date & Time of Evaluation Date of Evaluation: 08/19/17 Time of Evaluation: 11:00 - Subjective Subjective: Infectious Disease Follow Up: August 19, 2017 66 yo female with presentation of nausea and vomiting for 1 day prior to hospitalization. The patient gives a history of hypertension and was found to be hypokalemic. Leukocytosis of 25 on admission. The patient denies any other symptoms at this time. She states that she feels better since admission. Appetite returned. No further diarrhea. No complaints at this time. Objective - Vital Signs/Intake and Output Vital Signs (last 24 hours): Temp Pulse Resp BP Pulse Ox 98.4 F 80 20 167/86 H 95 08/19/17 08:36 08/19/17 09:32 08/19/17 08:36 08/19/17 09:32 08/19/17 08:36 Intake and Output: 08/19/17 08/19/17 06:59 18:59 Intake Total 2380 Balance 2380 - Labs Labs: 08/19/17 05:30 08/19/17 05:30 - Constitutional Appears: Non-toxic, No Acute Distress, Chronically Ill - Head Exam Head Exam: ATRAUMATIC, NORMOCEPHALIC - Eye Exam Eye Exam: EOMI, PERRL Pupil Exam: NORMAL ACCOMODATION, PERRL - ENT Exam ENT Exam: Mucous Membranes Moist, Normal External Ear Exam, TM's Normal Bilaterally - Neck Exam Neck Exam: Full ROM, Normal Inspection - Respiratory Exam Respiratory Exam: Clear to Ausculation Bilateral, NORMAL BREATHING PATTERN. absent: Rales, Rhonchi, Wheezes - Cardiovascular Exam Cardiovascular Exam: REGULAR RHYTHM, RRR, +S1, +S2 - GI/Abdominal Exam GI & Abdominal Exam: Soft, Normal Bowel Sounds. absent: Distended, Tenderness - Extremities Exam Extremities Exam: Full ROM, Normal Inspection - Neurological Exam Neurological Exam: Alert, Awake, CN II-XII Intact, Oriented x3 - Psychiatric Exam Psychiatric exam: Normal Affect, Normal Mood - Skin Skin Exam: Intact, Normal Color Assessment and Plan - Assessment and Plan (Free Text) Assessment: 66 yo female with nausea, vomiting, and diarrhea. Imaging studies did not show significant disease at this time. Initial leukocytosis of 25 that improved to normal over 24 hours. Clinically the patient is feeling better. Mcneil cultures pending. UTI? Supportive care. Monitor electrolytes and leukocytosis. Clinically improved. Can consider discharge with oral Keflex 500mg BID x 5-7 days. Thank you for allowing me to participate in the care of the patient, we will follow with you.
--- NOTE | 2017-08-20 21:26 | DS ---
FINAL DIAGNOSES: Gastroenteritis, resolved; leukocytosis, resolved; chronic hypertension; hyperlipidemia; obesity. DISPOSITION: Home. RUBBER TESTER: Dr. Brad Silvestre from Infectious Disease. DISCHARGE INSTRUCTIONS: HydroDIURIL 25 mg p.o. daily, Pravachol 80 mg p.o. daily, Cardizem CD 240 mg p.o. daily and Keflex 500 mg p.o. b.i.d. #10, no refill. Patient was advised to follow up with PMD, Dr. Terrell Pedersen, within 48 hours. Discharge instructions and discharge summary was reviewed in the presence of her nurse, Jossie Ellis, registered nurse. SUMMARY: This 66-year-old female was admitted to [facility] with nausea, vomiting, diarrhea and leukocytosis with hypokalemia and clinical dehydration and was placed on parenteral antibiotics while awaiting blood and urine cultures, which on blood culture showed no growth and on urine culture showed 10,000 to 50,000 colony forming units of multiple species consistent with probable contamination. Given the fact that the patient was admitted with a white count of 25,000, she was recommended to complete Keflex 500 mg p.o. b.i.d. #[address] Brad Silvestre from Infectious Disease. On admission, she was treated with oral potassium, IV fluids and medication from home and at the time of discharge, was tolerating a soft bland diet with formed, but soft stool, but no fever, no chills and no vomiting and no diarrhea. At the time of discharge, temperature was 98.4, respirations 20, pulse 80 and blood pressure 167/86 with pulse ox of 95% room air. She remained in a normal sinus rhythm on the shelter monitor. Her sodium was 144, K 4.4, chloride 108, bicarb 28, BUN 7, creatinine 0.6, random blood sugar 135. Cholesterol 128, triglycerides 54, LDL 65 and HDL 44. T4 was normal at 9.2. Initial white count of 25,000 8,300 with a hemoglobin of 11.9, hematocrit 37 and platelets of 230,000. She is discharged to home and hopefully will be compliant with the above recommendations. Greater than 35 minutes was spent in the discharge management of this patient today reviewing labs, medication and discharge instructions in the presence of her nurse, Jossie Ellis. Amelie Woo MD [facility] # [id number]
== END 2017-08-19 14:29 | disposition home or self-care (01) | DRG 392 ==
LOC: ED 09:07 → ERH 18:53 → 3RNO 23:42
PROVIDERS: ADMIT Internal Medicine; ATTEND Internal Medicine
DX: K52.9 Noninfective gastroenteritis and colitis, unspecified (principal); E86.0 Dehydration; E87.6 Hypokalemia; I10 Essential (primary) hypertension; F41.9 Anxiety disorder, unspecified; D72.829 Elevated white blood cell count, unspecified